=== PATIENT | male | born 2000 | race Hispanic/Latino ===

== ENCOUNTER 2025-07-01 17:32 | Emergency (ER) | payer OTHER ==
[~2025-07-01] VITALS: Ht 172.7 cm; Wt 122.0 kg
[2025-07-01 18:14] LABS: KETONE, URINE AUTO RFX NEGATIVE (NEGATIVE); LEUKOCYTE ESTERASE UR AUTO RFX NEGATIVE (NEGATIVE); NITRITE, URINE AUTO RFX NEGATIVE (NEGATIVE); RBC, URINE AUTO RFX 2 /HPF (0-3); SQUAM EPITHELIAL CELL UR AURFX 0 /HPF (0-6); WBC, URINE AUTO RFX 1 /HPF (0-3)
[2025-07-01 18:26] LABS: VENOUS BASE EXCESS -0.5 (-2.0-2.0); VENOUS HCO3 23.5 MMOL/L (23.0-27.0); VENOUS O2 SATURATION 93.4 % (60.0-80.0); VENOUS PARTIAL PRESSURE CO2 37.2 mmHg (38.0-50.0); VENOUS PARTIAL PRESSURE O2 66.5 mmHg (30.0-50.0); VENOUS PH 7.419 UNITS (7.330-7.430); VENOUS STANDARD HCO3 23.9 MMOL/L; VENOUS TOTAL CO2 24.7 MMOL/L (24.0-28.0)
[2025-07-01 18:31] LABS: BASO # 0.1 10^3/uL (0.0-0.2); BASO % 0.7 % (0.0-1.0); EOS # 0.3 10^3/uL (0.0-0.5); EOS % 3.4 % (0.0-3.0); LYMPH # 2.5 10^3/uL (1.5-5.0); LYMPH % 32.2 % (24.0-44.0); MONO # 0.6 10^3/uL (0.0-0.8); MONO % 7.2 % (2.0-8.0); NEUTROPHILS # 4.3 10^3/uL (1.5-8.5); NEUTROPHILS % 56.2 % (36.0-66.0); PLATELET COUNT, AUTOMATED 369 10^3/uL (150-450)
[2025-07-01 18:45] LABS: OSMOLALITY SERUM 302.0 MOSM/KG (275-295)
[2025-07-01 18:58] LABS: ESTIMATED AVERAGE GLUCOSE 260.0 MG/DL (60-110)
[2025-07-01 19:02] LABS: ACETONE/KETONE 0.14 MMOL/L (0.02-0.27); ALT/SGPT 143.0 U/L (7.0-40); AST/SGOT 59.0 U/L (<34)
[2025-07-01] MEDS ORDERED: GLUCMIS7 XX (22:45)
[2025-07-01] MEDS ORDERED: METF-838 PO (22:45)
[2025-07-01] MEDS ORDERED: FINGMIS XX (22:45)
[2025-07-01 22:58] VITALS: BP 162/79; TEMP 97.5; O2SAT 97
== END 2025-07-01 22:59 | disposition home or self-care (01) ==
LOC: M ED 17:32
DX: N48.1 Balanitis (principal); E11.65 Type 2 diabetes mellitus with hyperglycemia; Z79.4 Long term (current) use of insulin; Z79.899 Other long term (current) drug therapy